=== PATIENT | female | born 1945 | race African-American/Black ===

== ENCOUNTER → 2018-08-10 | Outpatient (CLI) | payer MEDICARE, BC ==
[2015-05-09 12:45] VITALS: BP 111/72
[~2018-08-10] MED LIST: ABAT250V IV; ASPI-482 PO; CA C1TAB28 PO; CALC-112 PO; CINN500C2 PO; COCO100O2 MC; FERR325C PO; LOSA1TAB22 PO; MELO15TA23 PO; MULT-18 PO; POTA20TA4 PO; WARF-78 PO
--- NOTE | 2018-08-10 14:10 | KCIC ---
EXAM: Bilateral digital screening mammogram with tomosynthesis. HISTORY: 73 year-old presents for screening mammography. TECHNIQUE: Full-field digital craniocaudal and mediolateral oblique 2D and 3D tomosynthesis images of both breasts are obtained for evaluation. Computer aided detection with ConisusD software version 9.3 was applied. COMPARISON: 06/28/2017 and 2015 and 06/24/2015 BREAST PARENCHYMAL DENSITY: Level B - Scattered fibroglandular densities. FINDINGS: There is increased density with architectural distortion within the 12:30 position of the left breast at mid depth. This is slightly more conspicuous compared to prior studies. This is possibly due to the site of prior benign left breast biopsy. There are stable scattered areas of nodularity and there are few benign calcifications. IMPRESSION: BI-RADS Category 0: Additional imaging needed. RECOMMENDATION: Further evaluation with a left breast sonogram targeted to the 2:30 position at mid depth is recommended to assess increased density with architectural distortion, possibly due to the site of prior breast biopsy. Correlation for a cutaneous scar overlying this region may also be useful. If your mammogram demonstrates that you have dense breast tissue, which could hide abnormalities, and if you have other risk factors for breast cancer that have been identified, you might benefit from supplemental screening tests that may be suggested by your ordering physician. Dense breast tissue, in and of itself, is a relatively common condition. This information is not provided to cause undue concern, but rather to raise your awareness and to promote discussion with your physician regarding the presence of other risk factors, in addition to dense breast tissue. A report of your mammography results will be sent to you and your physician. You should contact your physician if you have any questions or concerns regarding this report. Mammography is a sensitive method for finding small breast cancers, but it does not detect them all and is not a substitute for careful clinical examination. A negative mammogram does not negate a clinically suspicious finding and should not result in delay in biopsying a clinically suspicious abnormality. PQRS compliance statement - Patient information was entered into a reminder system with a target due date for the next mammogram. "Our facility is accredited by the [employer] Mammography Program." Electronically signed by: Soraida Grijalva MD (08/10/2018 2:05 PM) [facility]
== END | disposition home or self-care (01) ==
LOC: KCIC MAMMO 12:06
PROVIDERS: ATTEND Physician Assistant Surgical
DX: Z12.31 Encounter for screening mammogram for malignant neoplasm of breast (principal)
CPT/HCPCS: 77063; 77067

== ENCOUNTER → 2018-08-23 | Outpatient (CLI) | payer MEDICARE, BC ==
[2015-05-09 12:45] VITALS: BP 111/72
--- NOTE | 2018-08-23 13:12 | KCIC ---
Left breast diagnostic ultrasound HISTORY: Asymmetric tissue density in the upper left breast seen in the August 10, 2018 mammogram Sonographic examination of the 12:00 to 3:00 left breast was performed and multiple static images obtained There is a vague heterogeneous area in the 12:00 left breast 2 cm from the nipple which does not appear suspicious and does not correspond to the mammographic finding. There is a small hypoechoic mass at 2:00 3.5 cm from the nipple that measures 6 mm x 4 mm x 6 that is shadowing, has irregular margins and is taller than wide. There is no detectable blood flow. IMPRESSION: Small suspicious mass corresponding with the mammographic abnormality. Recommend ultrasound-guided biopsy. These results were provided to the patient by the child caregiver. The patient and the clinical service will be contacted by the radiology staff for further instructions. BI-RADS Category 4: Suspicious. Electronically signed by: Tye Red III, MD (08/23/2018 1:08 PM) [facility]
== END | disposition home or self-care (01) ==
LOC: KCIC US 11:03
PROVIDERS: ATTEND Physician Assistant Surgical
DX: R92.8 Other abnormal and inconclusive findings on diagnostic imaging of breast (principal)
CPT/HCPCS: 76641

== ENCOUNTER → 2018-09-14 | Outpatient (CLI) | payer MEDICARE, BC ==
[2015-05-09 12:45] VITALS: BP 111/72
--- NOTE | 2018-09-14 14:47 | RAD ---
Ultrasound-guided left breast biopsy, 09/14/2018: History: Left breast lesion A previous ultrasound study demonstrated a vague hypoechoic area of suspicion at the 2:00 location in the left breast approximately 3.5 cm in the nipple. Under local anesthesia, aseptic conditions and sonographic guidance the [employer] biopsy instrument was passed into this area via a lateral approach. Multiple 12-gauge vacuum-assisted core samples were obtained and sent to pathology for evaluation. A biopsy marker was deposited biopsy site. The biopsy instrument was then removed and hemostasis obtained. Two-view postprocedural digital mammograms were then obtained to document position of the biopsy marker. This biopsied lesion is shown to lie anterior and lateral to the chronic spiculated left previous breast lesion which has been thought to represent scarring. The patient tolerated the procedure well and left the department in good condition. The pathology results are pending. An addendum report will be issued when the pathologic results are available for correlation.
--- NOTE | 2018-09-18 08:09 | PATHOLOGY ---
[facility] Accession Number: [id number] . 01 Material submitted: . LEFT BREAST TISSUE, 200 3.5CMFN . 01 Clinical history: . Left breast mass . 02 Diagnosis: Breast tissue, left breast mass 2:00 needle biopsies: - Stromal fibrosis, focal. See comment. (JPM:trish; 09/15/2018) QMS/09/15/2018 . 02 Comment: Sections of the left breast mass at 2:00 needle biopsy reveal segments of predominantly fatty breast tissue. There are several small foci of stromal fibrosis. There is no atypia or evidence of malignancy. It is not clear if the biopsy findings are international account representative of the lesion. Please correlate with mammographic findings. (JPM:trish; 09/15/2018) . 02 Electronically signed: . Henry Lee MD, Pathologist NPI- [id number] . 01 Gross description: . Received in formalin labeled "Alyssia Saldaña, left breast 2:00," and additionally labeled on the requisition as "3.5 cm FN," are multiple needle cores of yellow-worrell fibrofatty tissue measuring 1.7 x 2.1 x 0.3 cm in aggregate dimensions. The tissue is submitted in its entirety in cassette A1 through A3. The cold ischemic time is 2 minutes. The total formalin fixation time is 9 hours and 43 minutes. (TSD; 09/14/2018) TOB/TOB . 02 Pathologist provided ICD-10: N60.32 . 02 CPT . 211348 Specimen Comment: A courtesy copy of this report has been sent to Specimen Comment: [phone], , . Specimen Comment: Report sent to ,DR VALENCIA / DR CARL Specimen Comment: A duplicate report has been generated due to demographic updates. Performed at: 01 [facility] [address] [place] [address] [place], [place] [id number] MD Ariel Vazquez MD Phone: [phone] Performed at: 02 [facility] [address], [place] [id number] MD Henry Lee MD Phone: [phone]
== END | disposition home or self-care (01) ==
LOC: US 11:25
PROVIDERS: ATTEND Surgery
DX: N60.32 Fibrosclerosis of left breast (principal); I10 Essential (primary) hypertension; Z79.01 Long term (current) use of anticoagulants; Z88.8 Allergy status to other drugs, medicaments and biological substances
CPT/HCPCS: 19083; 77065; 88305; C1713; 19081; 76942

== ENCOUNTER → 2019-03-23 | Day surgery (SDC) | payer MEDICARE, BC ==
[~2019-03-23] MED LIST changes: +HYDROmorphone 2 MG/ML VIAL IV PRN; +IV RINGERS,LACTATED 1000ML 1,000 ML IV SCH; +LIDOCAINE 2% PF 5 ML VIAL. ONE; +MORPHINE SULFATE 2 MG/ML VIAL. IV PRN; +ONDANSETRON PF 4 MG/2 ML VIAL. IV PRN; +PROCHLORPERAZINE 10 MG/2 ML VIAL. IV PRN; +PROPOFOL 40 ML IV ONE; +fentaNYL PF VIAL 100 MCG/2 ML VIAL IV PRN
[2019-03-23 09:08] VITALS: BP 134/65
== END ==
LOC: SURG 07:16
PROVIDERS: ATTEND Internal Medicine Gastroenterology
DX: Z12.11 Encounter for screening for malignant neoplasm of colon (principal); K57.30 Diverticulosis of large intestine without perforation or abscess without bleeding; K64.0 First degree hemorrhoids; I10 Essential (primary) hypertension; D64.9 Anemia, unspecified; F15.90 Other stimulant use, unspecified, uncomplicated; Z86.010 Personal history of colon polyps; Z87.39 Personal history of other diseases of the musculoskeletal system and connective tissue; Z79.82 Long term (current) use of aspirin; Z79.899 Other long term (current) drug therapy; Z98.890 Other specified postprocedural states; Z98.0 Intestinal bypass and anastomosis status; Z90.710 Acquired absence of both cervix and uterus; Z98.51 Tubal ligation status
CPT/HCPCS: G0105; J2001; J2704; 45378

== ENCOUNTER → 2019-09-12 | Outpatient (CLI) | payer MEDICARE, BC ==
[2019-03-23 09:08] VITALS: BP 134/65
[~2019-09-12] MED LIST changes: -HYDROmorphone 2 MG/ML VIAL IV PRN; -IV RINGERS,LACTATED 1000ML 1,000 ML IV SCH; -LIDOCAINE 2% PF 5 ML VIAL. ONE; -MORPHINE SULFATE 2 MG/ML VIAL. IV PRN; -ONDANSETRON PF 4 MG/2 ML VIAL. IV PRN; -PROCHLORPERAZINE 10 MG/2 ML VIAL. IV PRN; -PROPOFOL 40 ML IV ONE; -fentaNYL PF VIAL 100 MCG/2 ML VIAL IV PRN
--- NOTE | 2019-09-12 18:01 | KCIC ---
Bilateral digital screening mammograms with 3-D tomosynthesis: Reason for examination: Routine screening. Comparison is made to previous studies dated back to 06/24/2015. Bilateral mammograms in CC and oblique projections were obtained with 2-D imaging and 3-D tomosynthesis imaging on a Siemens Inspiration unit and reviewed on the workstation. Interpretation was made with the benefit of CAD. The skin and nipples show no abnormalities. No abnormal axillary lymph nodes are seen. The breast parenchyma shows scattered fatty and fibroglandular density. (Breast density: Category B.) There continues be focal architectural distortion at the 12:30 B position of the left breast which remains stable. This likely represents a site of previous biopsy. This does not correspond with the site of biopsy clip placed on September 14, 2018. There are no new dominant masses, suspicious calcifications or architectural distortion. Benign calcifications are present. Impression: Continued presence of focal architectural distortion at the 12:30 B position of the left breast which is stable back to 06/24/2015 and likely represents previous excisional biopsy site.. Biopsy clip does not correspond with the site. BI-RAD Category 2: Benign. "Our facility is accredited by the [employer] Mammography Program." This patient's information has been entered into a reminder system for the patient to be notified with the results of her examination and a target date for the next mammogram. Electronically signed by: Lilia Squires MD (09/12/2019 5:58 PM) [facility]
== END | disposition home or self-care (01) ==
LOC: KCIC MAMMO 08:23
PROVIDERS: ATTEND Internal Medicine
DX: Z12.31 Encounter for screening mammogram for malignant neoplasm of breast (principal); N64.89 Other specified disorders of breast
CPT/HCPCS: 77063; 77067

== ENCOUNTER → 2020-02-07 | Outpatient (CLI) | payer MEDICARE, BC ==
[2019-03-23 09:08] VITALS: BP 134/65
[~2020-02-07] MED LIST changes: +ABAT125S SQ; -ABAT250V IV; +ABAT250V2 IV; -WARF-78 PO; +WARF5TAB2 PO
== END | disposition home or self-care (01) ==
LOC: LAB 12:39
PROVIDERS: ATTEND Ophthalmology
DX: Z11.59 Encounter for screening for other viral diseases (principal)
CPT/HCPCS: 36415; U0003

== ENCOUNTER 2020-02-11 06:05 | Day surgery (SDC) | payer MEDICARE, BC ==
[~2020-02-11 06:05] MED LIST changes: -ABAT125S SQ; +LIDOCAINE 2% JELLY 6ML IN APPLICATOR. OS ONE; +PROPARACAINE 0.5% OPHTH SOLUTION 15ML BOTTLE. OS ONE
[2020-02-11] MEDS ORDERED: CIPROFLOXACIN 0.3% OPHTH SOLUTION 5ML BOTTLE. OS ONE (06:15)
[2020-02-11] MEDS ORDERED: ABAT125S SQ (06:49)
[2020-02-11] MEDS: CYCLOPENTOLATE 1% OPTH SOLUTION 2ML BOTTLE. OS SCH ×3 (07:00→07:10)
[2020-02-11] MEDS ORDERED: HYDROmorphone 2 MG/ML VIAL IV PRN (07:00)
[2020-02-11] MEDS ORDERED: IV RINGERS,LACTATED 1000ML 1,000 ML IV SCH (07:00)
[2020-02-11] MEDS ORDERED: LIDOCAINE 1% PF 2 ML VIAL. ID PRN (07:00)
[2020-02-11] MEDS ORDERED: MORPHINE SULFATE 2 MG/ML VIAL. IV PRN (07:00)
[2020-02-11] MEDS ORDERED: ONDANSETRON PF 4 MG/2 ML VIAL. IV PRN (07:00)
[2020-02-11] MEDS ORDERED: fentaNYL PF VIAL 100 MCG/2 ML VIAL IV PRN ×2 (07:00)
[2020-02-11] MEDS: PHENYLEPHRINE 10% OPHTH SOLUTION 5ML BOTTLE. OS SCH ×3 (07:00→07:10)
[2020-02-11] MEDS ORDERED: PROCHLORPERAZINE 10 MG/2 ML VIAL. IV PRN (07:00)
[2020-02-11] MEDS ORDERED: BALANCED SALT IRRIG OPHTH SOLN 15 ML BOTTLE. ONE ×2 (07:09→07:10)
[2020-02-11] MEDS ORDERED: CHONDROIT-SOD-HYALURONATE KIT. ONE (07:10)
[2020-02-11] MEDS ORDERED: NEO/POLYMYX/DEXAMETH OPHTH OINTMENT 3.5GM TUBE. ONE (07:10)
[2020-02-11] MEDS ORDERED: LIDOCAINE 2% JELLY 6ML IN APPLICATOR. ONE (07:10)
[2020-02-11] MEDS ORDERED: CHONDROITIN-SOD-HYALURONATE 0.5 ML DISP.SYRIN. ONE (07:10)
[2020-02-11] MEDS ORDERED: LIDOCAINE 1%/PHENYLEPH 1.5% PF OPHTH 1 ML VIAL. ONE (07:10)
[2020-02-11] MEDS ORDERED: MIDAZOLAM HCL/PF 2 MG/2 ML VIAL. ONE (08:01)
[2020-02-11 09:04] VITALS: BP 149/67
--- NOTE | 2020-02-11 09:10 | OP ---
DATE OF SURGERY: 02/11/2020 PREOPERATIVE DIAGNOSIS: Cataract of the left eye. PROCEDURE: Phacoemulsification with posterior chamber intraocular lens implantation of the left eye. INDICATION: Painless progressive visual loss, visually significant cataract and difficulty reading. SURGEON: Eliot Mejia MD ANESTHESIA: Topical with monitored anesthesia care. DESCRIPTION OF PROCEDURE: The left eye was prepped with Betadine in the usual sterile fashion and draped. A paracentesis was performed followed by instillation of preservative-free, phenylephrine and lidocaine. Viscoelastic was injected in the anterior chamber and temporal clear corneal incision was made. A capsulorrhexis was performed followed by hydro expression and Viscoat sandwich. The phacoemulsification handpiece was used to remove the nucleus in a modified stop and chop fashion. The I/A handpiece was used to remove the cortex. Viscoelastic was injected in the capsular bag and an Raza, model [id number] with a power of 23.5 diopters was placed into the capsular bag. Balanced salt solution was used to hydrate the corneal wounds and the viscoelastic evacuated with the I/A handpiece. Once no leak was noted, Maxitrol was placed on the eye and the eye shielded and the patient was sent to the recovery room uneventfully. BONY WEST MD DR: DARNELL/taylor JOB#: [id number] / [id number]
== END 2020-02-11 09:30 | disposition home or self-care (01) ==
LOC: SURG 06:05
PROVIDERS: ATTEND Ophthalmology
DX: H25.12 Age-related nuclear cataract, left eye (principal); G47.30 Sleep apnea, unspecified; D64.9 Anemia, unspecified; I10 Essential (primary) hypertension; E66.9 Obesity, unspecified; Z68.30 Body mass index [BMI] 30.0-30.9, adult; Z87.891 Personal history of nicotine dependence; Z98.890 Other specified postprocedural states; Z86.010 Personal history of colon polyps; Z98.84 Bariatric surgery status; Z96.643 Presence of artificial hip joint, bilateral; Z90.710 Acquired absence of both cervix and uterus; Z98.51 Tubal ligation status
CPT/HCPCS: 66984; C1780; J0171; J0690; J1580; J2250; J3490

== ENCOUNTER → 2020-02-25 | Day surgery (SDC) | payer MEDICARE, BC ==
[~2020-02-25] MED LIST changes: +ABAT125S SQ; +BALANCED SALT IRRIG OPHTH SOLN 15 ML BOTTLE. ONE; +CHONDROIT-SOD-HYALURONATE KIT. ONE; +CHONDROITIN-SOD-HYALURONATE 0.5 ML DISP.SYRIN. ONE; +CIPROFLOXACIN 0.3% OPHTH SOLUTION 5ML BOTTLE. OD ONE; +IV RINGERS,LACTATED 1000ML 1,000 ML IV SCH; +LIDOCAINE 1% PF 2 ML VIAL. ONE; +LIDOCAINE 1%/PHENYLEPH 1.5% PF OPHTH 1 ML VIAL. ONE; +LIDOCAINE 2% JELLY 6ML IN APPLICATOR. OD ONE; +LIDOCAINE 2% JELLY 6ML IN APPLICATOR. ONE; -LIDOCAINE 2% JELLY 6ML IN APPLICATOR. OS ONE; +NEO/POLYMYX/DEXAMETH OPHTH OINTMENT 3.5GM TUBE. ONE; +PROPARACAINE 0.5% OPHTH SOLUTION 15ML BOTTLE. OD ONE; -PROPARACAINE 0.5% OPHTH SOLUTION 15ML BOTTLE. OS ONE
[2020-02-25] MEDS: CYCLOPENTOLATE 1% OPHTH SOLUTION 2ML BOTTLE. OD SCH ×3 (06:09→07:05)
[2020-02-25] MEDS: PHENYLEPHRINE 10% OPHTH SOLUTION 5ML BOTTLE. OD SCH ×3 (06:40→06:52)
[2020-02-25 07:10] VITALS: BP 200/63
--- NOTE | 2020-02-25 08:50 | OP ---
DATE OF SURGERY: 02/25/2020 PREOPERATIVE DIAGNOSIS: Cataract of the right eye. PROCEDURE: Phacoemulsification with posterior chamber intraocular lens implantation of the right eye. SURGEON: Bony Mccabe MD ANESTHESIA: Topical with monitored anesthesia care. DESCRIPTION OF PROCEDURE: The right eye was prepped with Betadine in the usual sterile fashion and draped. A paracentesis was performed, followed by instillation of preservative-free lidocaine and phenylephrine. A temporal clear corneal incision was made, followed by a capsulorrhexis and hydrodissection. The nucleus was removed with the phacoemulsification handpiece and the I/A handpiece used to remove the cortex. Viscoelastic was used to fill the anterior chamber and an Raza, model [id number] with a power of 23.5 diopters was placed into the capsular bag. Balanced salt solution was used to hydrate the corneal wounds and the viscoelastic evacuated with the I/A handpiece. Once no leak was noted, Maxitrol was placed on the eye and the eye shielded and the patient was sent to the recovery room uneventfully. BONY MCCABE MD DR: DARNELL/taylor JOB#: [id number] / [id number]
== END ==
LOC: SURG 06:07
PROVIDERS: ATTEND Ophthalmology
DX: H25.11 Age-related nuclear cataract, right eye (principal); E66.9 Obesity, unspecified; I10 Essential (primary) hypertension; D64.9 Anemia, unspecified; G47.30 Sleep apnea, unspecified; Z87.891 Personal history of nicotine dependence; Z68.30 Body mass index [BMI] 30.0-30.9, adult; Z86.010 Personal history of colon polyps; Z98.84 Bariatric surgery status; Z87.39 Personal history of other diseases of the musculoskeletal system and connective tissue; Z96.643 Presence of artificial hip joint, bilateral; Z98.890 Other specified postprocedural states; Z90.710 Acquired absence of both cervix and uterus
CPT/HCPCS: 66984; C1780; J0171; J0690; J1580; J3490

== ENCOUNTER 2020-06-30 07:15 | Emergency (ER) | payer MEDICARE, BC ==
[~2020-06-30] VITALS: Ht 172.7 cm; Wt 91.0 kg
[~2020-06-30 07:15] MED LIST changes: -BALANCED SALT IRRIG OPHTH SOLN 15 ML BOTTLE. ONE; -CHONDROIT-SOD-HYALURONATE KIT. ONE; -CHONDROITIN-SOD-HYALURONATE 0.5 ML DISP.SYRIN. ONE; -CIPROFLOXACIN 0.3% OPHTH SOLUTION 5ML BOTTLE. OD ONE; -IV RINGERS,LACTATED 1000ML 1,000 ML IV SCH; -LIDOCAINE 1% PF 2 ML VIAL. ONE; -LIDOCAINE 1%/PHENYLEPH 1.5% PF OPHTH 1 ML VIAL. ONE; -LIDOCAINE 2% JELLY 6ML IN APPLICATOR. OD ONE; -LIDOCAINE 2% JELLY 6ML IN APPLICATOR. ONE; -NEO/POLYMYX/DEXAMETH OPHTH OINTMENT 3.5GM TUBE. ONE; -PROPARACAINE 0.5% OPHTH SOLUTION 15ML BOTTLE. OD ONE
[2020-06-30 08:17] LABS: BILIRUBIN,URINE NEGATIVE (NEG); CLARITY,URINE CLEAR; COLOR,URINE YELLOW; NITRITE,URINE NEGATIVE (NEG); PH,URINE 7.5 (<5.0-8.0); PROTEIN,URINE NEGATIVE (NEG-TRACE)
[2020-06-30 08:25] LABS: CREATININE 0.6 mg/dL (0.6-1.0); GFR 117.9
[2020-06-30 08:26] LABS: BASO % 0 % (0-3); EOS # 0.1 x10^3/uL (0.0-0.7); EOS % 1 % (0-3); HEMATOCRIT 37.8 % (36.0-47.0); HEMOGLOBIN 11.8 g/dL (12.0-15.5); LYMPH # 2.3 x10^3/uL (1.0-4.8); LYMPH % 33 % (24-48); MEAN CORPUSCULAR HEMOGLOBIN 23 pg (25-35); MEAN CORPUSCULAR HGB CONC 31 g/dL (31-37); MEAN CORPUSCULAR VOLUME 73 fL (79-100); MONO # 0.6 x10^3/uL (0.0-1.1); MONO % 8 % (0-9); NEUT # 3.9 x10^3/uL (1.8-7.7); NEUT % 57 % (31-73); PLATELET COUNT 264 x10^3/uL (140-400); RED BLOOD COUNT 5.21 x10^6/uL (3.50-5.40); WHITE BLOOD COUNT 6.8 x10^3/uL (4.0-11.0)
--- NOTE | 2020-06-30 08:29 | PHYS DOC ---
Past Medical History Past Medical History: Arthritis, Hypertension Additional Past Medical Histor: RA, osteoarthritis, osteoporosis Past Surgical History: Hip Replacement Additional Past Surgical Histo: bilateral hip Past Surgical History biliopancreatic diversion Smoking Status: Former Smoker Alcohol Use: None Drug Use: None General Adult EDM: Chief Complaint: GI PROBLEM HPI: HPI: Patient is a 75 year old female who presents with intermittent abdominal pain that started several months ago. This is the third time it has happened. The pain began last night and it feels raw in her midsection and is constant and does not radiate. The pt vomited last night and that made the pain better. Pt also took hydrocodone and that made the pain better. Ibuprofen did not help. Pt saw her primary care for this issue last Tuesday but it was not addressed at the time. Pt also sleeps with a CPAP and states that it makes the abdominal pain worse and has not been using it. Pt also has loose stools associated with the pain. Pt denies any history of GERD. Denies fever/chills. Reports she has been eating fried fish. Review of Systems: Review of Systems: Constitutional: Denies fever or chills Eyes: Denies redness or eye pain HENT: Denies nasal congestion or sore throat Respiratory: Denies cough or shortness of breath Cardiovascular: Denies chest pain or palpitations GI: Reports abdominal pain, nausea, and vomiting : Denies dysuria or hematuria Musculoskeletal: Denies back pain or joint pain Integument: Denies rash or skin lesions Neurologic: Denies headache, focal weakness or sensory changes Complete systems were reviewed and found to be within normal limits, except as documented in this note. Family History: Family History: Mom: SD/DM Dad: strokes Allergies: Allergies: Allergies Coded Allergies Type Severity Reaction Last Updated Verified lisinopril Adverse Reaction Intermediate flu like symptoms 02/11/20 Yes Physical Exam: PE: Constitutional: Well developed, well nourished, no acute distress, non-toxic appearance HENT: Normocephalic, atraumatic Eyes: conjunctiva normal, no discharge Neck: Normal range of motion, no tenderness, supple Lungs & Thorax: No respiratory distress, equal chest rise and fall Abdomen: Soft, upper abdominal tenderness to palpation, no masses, no organomegaly, vertical scar on mid abdomen Skin: Warm, dry, no erythema, no rash Back: No tenderness, no CVA tenderness Extremities: No tenderness, ROM intact, no edema Neurologic: Alert and oriented X 3, normal motor function, normal sensory function, no focal deficits noted Psychologic: Affect normal, judgment normal EKG: EKG: [] Radiology/Procedures: Radiology/Procedures: PROCEDURE: CT ABD PELV W/ IV CONTRST ONLY EXAM: CT Abdomen and Pelvis with IV contrast INDICATION: Reason: abdominal pain / Spl. Instructions: IV OMNI 300 75 MLS / History: TECHNIQUE: Multi-detector row CT images were acquired from the lung bases through the abdomen and pelvis with the use of IV contrast. Sagittal and coronal images were acquired from the transaxial data. All CT scans performed at this facility utilize dose optimization techniques as appropriate to the exam, including the following: Automated exposure control and adjustment of the mA and/or KV according to patient size (this includes techniques or standardized protocols for targeted exams where dose is indication/reason for exam). IV CONTRAST: Administered ORAL CONTRAST: Not administered COMPARISON: None FINDINGS: LOWER CHEST: Unremarkable LIVER: Unremarkable BILIARY SYSTEM: Gallbladder is mildly distended and shows wall thickening with mild pericholecystic stranding associated with a 2.7 cm stone at the gallbladder neck. There is mild anterior and extrahepatic biliary dilation with the common duct at the bayron hepatis measuring approximately 7 mm PANCREAS: Unremarkable SPLEEN: Unremarkable ADRENALS: Unremarkable KIDNEYS & URETERS: Unremarkable BLADDER: Unremarkable REPRODUCTIVE ORGANS: Unremarkable GASTROINTESTINAL: There are surgical changes suggesting a previous distal gastrectomy. Additional surgical changes suggesting partial small bowel resection. No evidence of bowel obstruction, perforation or acute inflammation. Moderate stool throughout the large bowel. Appendix is surgically absent. MESENTERY/PERITONEUM/RETROPERITONEUM: Unremarkable VASCULAR: Extensive arterial calcifications. LYMPH NODES: No adenopathy OSSEOUS & SOFT TISSUES: Bilateral hip arthroplasties are present. IMPRESSION: Cholelithiasis with additional CT findings suspicious for acute cholecystitis. Consider correlation with gallbladder ultrasound. Electronically signed by: Antoine Grande MD (06/30/2020 9:05 AM) [id number] PROCEDURE: ABDOMEN LTD ABDOMEN LTD: 06/30/2020 9:12 AM Indication: 75 years old female with right upper abdominal pain. Comparison: CT abdomen/pelvis 06/30/2020 TECHNIQUE: Sonographic evaluation of the right upper quadrant was performed utilizing grayscale and color Doppler imaging. FINDINGS: Liver: There is diffuse increased echogenicity of the hepatic parenchyma compatible with diffuse hepatocellular disease, most commonly due to steatosis. This decreases the sensitivity of ultrasound for the detection of focal hepatic lesions. There is mild periportal edema. There is hepatopedal flow within the portal venous system. Right hepatic lobe measures 15.5 cm. Biliary system: CBD measures 4 mm. There is no intrahepatic or extrahepatic biliary dilatation. Gallbladder: Cholelithiasis without significant gallbladder wall thickening or pericholecystic fluid . Sonographic Calloway sign: Not reported. Pancreas: Suboptimal visualization due to bowel gas. Right kidney:10.3 x 5.7 x 4.6 cm No hydronephrosis. Normal echotexture without focal mass or renal calculus. Free fluid:None. IMPRESSION: 1. Cholelithiasis with a gallstone measuring up to 2.5 cm. No sonographic evidence for acute cholecystitis. If there is persistent clinical concern, HIDA could be of benefit. 2. Mild periportal edema could reflect hepatic inflammation versus fluid overload. 3. No intrahepatic or extrahepatic biliary ductal dilatation. 4. Suspect mild hepatic steatosis. Electronically signed by: Arely Tijerina MD (06/30/2020 10:36 AM) [id number] Course & Med Decision Making: Course & Med Decision Making Pertinent Labs and Imaging studies reviewed. (See chart for details) Patient presented with abdominal pain that began yesterday. Reports has had similar events over the last few months. Labs were obtained and posted to chart. WBC WNL. LFTs and lipase also WNL. Pain and nausea addressed. IVF provided. CT scan was obtained and demonstrated. Cholelithiasis noted on CT. US without findings of acute cholecystitis. Patient stable for discharge with outpatient follow-up with PCP/General surgery. General surgery referral provided. Rx for anti-emetic provided. Patient reports she has pain medications at home. Discussed findings and plan with patient, who acknowledges understanding and agreement. Dragon Disclaimer: Dragcasi Disclaimer: This electronic medical record was generated, in whole or in part, using a voice recognition dictation system. Departure Departure Impression: Primary Impression: Cholelithiases Qualified Codes: K80.50 - Calculus of bile duct without cholangitis or cholecystitis without obstruction Disposition: 01 DC HOME SELF CARE/HOMELESS Condition: STABLE Referrals: YENI SYLVESTER MD (PCP) JP VALENCIA MD Patient Instructions: Cholelithiasis, [id number] Scripts Ondansetron (ONDANSETRON ODT) 4 Mg Tab.rapdis 1 TAB PO PRN Q6-8HRS PRN for NAUSEA, #16 TAB Prov: SAGE REZA DO 06/30/20 SAGE REZA DO Jun 30, 2020 08:29
[2020-06-30 08:30] LABS: ALBUMIN 3.5 g/dL (3.4-5.0); ALBUMIN/GLOBULIN RATIO 1.1 (1.0-1.7); MAGNESIUM 2.1 mg/dL (1.8-2.4); TOTAL BILIRUBIN 0.8 mg/dL (0.2-1.0); TOTAL PROTEIN 6.8 g/dL (6.4-8.2)
[2020-06-30 08:34] VITALS: BP 160/74
[2020-06-30 08:45] LABS: BACTERIA,URINE 0 /HPF (0-FEW); RBC,URINE OCC /HPF (0-2); WBC,URINE 0 /HPF (0-4)
[2020-06-30] MEDS ORDERED: CONTRAST GIVEN. MC PRN (08:45)
[2020-06-30] MEDS ORDERED: IOHEXOL 300 MG/ML 100ML VIAL. IV ONE (09:00)
--- NOTE | 2020-06-30 09:08 | RAD ---
EXAM: CT Abdomen and Pelvis with IV contrast INDICATION: Reason: abdominal pain / Spl. Instructions: IV OMNI 300 75 MLS / History: TECHNIQUE: Multi-detector row CT images were acquired from the lung bases through the abdomen and pelvis with the use of IV contrast. Sagittal and coronal images were acquired from the transaxial data. All CT scans performed at this facility utilize dose optimization techniques as appropriate to the exam, including the following: Automated exposure control and adjustment of the mA and/or KV according to patient size (this includes techniques or standardized protocols for targeted exams where dose is indication/reason for exam). IV CONTRAST: Administered ORAL CONTRAST: Not administered COMPARISON: None FINDINGS: LOWER CHEST: Unremarkable LIVER: Unremarkable BILIARY SYSTEM: Gallbladder is mildly distended and shows wall thickening with mild pericholecystic stranding associated with a 2.7 cm stone at the gallbladder neck. There is mild anterior and extrahepatic biliary dilation with the common duct at the bayron hepatis measuring approximately 7 mm PANCREAS: Unremarkable SPLEEN: Unremarkable ADRENALS: Unremarkable KIDNEYS & URETERS: Unremarkable BLADDER: Unremarkable REPRODUCTIVE ORGANS: Unremarkable GASTROINTESTINAL: There are surgical changes suggesting a previous distal gastrectomy. Additional surgical changes suggesting partial small bowel resection. No evidence of bowel obstruction, perforation or acute inflammation. Moderate stool throughout the large bowel. Appendix is surgically absent. MESENTERY/PERITONEUM/RETROPERITONEUM: Unremarkable VASCULAR: Extensive arterial calcifications. LYMPH NODES: No adenopathy OSSEOUS & SOFT TISSUES: Bilateral hip arthroplasties are present. IMPRESSION: Cholelithiasis with additional CT findings suspicious for acute cholecystitis. Consider correlation with gallbladder ultrasound. Electronically signed by: Antoine Grande MD (06/30/2020 9:05 AM) [id number]
[2020-06-30] MEDS ORDERED: fentaNYL PF VIAL 100 MCG/2 ML VIAL IV ONE (09:45)
--- NOTE | 2020-06-30 10:40 | RAD ---
ABDOMEN LTD: 06/30/2020 9:12 AM Indication: 75 years old female with right upper abdominal pain. Comparison: CT abdomen/pelvis 06/30/2020 TECHNIQUE: Sonographic evaluation of the right upper quadrant was performed utilizing grayscale and color Doppler imaging. FINDINGS: Liver: There is diffuse increased echogenicity of the hepatic parenchyma compatible with diffuse hepatocellular disease, most commonly due to steatosis. This decreases the sensitivity of ultrasound for the detection of focal hepatic lesions. There is mild periportal edema. There is hepatopedal flow within the portal venous system. Right hepatic lobe measures 15.5 cm. Biliary system: CBD measures 4 mm. There is no intrahepatic or extrahepatic biliary dilatation. Gallbladder: Cholelithiasis without significant gallbladder wall thickening or pericholecystic fluid . Sonographic Calloway sign: Not reported. Pancreas: Suboptimal visualization due to bowel gas. Right kidney:10.3 x 5.7 x 4.6 cm No hydronephrosis. Normal echotexture without focal mass or renal calculus. Free fluid:None. IMPRESSION: 1. Cholelithiasis with a gallstone measuring up to 2.5 cm. No sonographic evidence for acute cholecystitis. If there is persistent clinical concern, HIDA could be of benefit. 2. Mild periportal edema could reflect hepatic inflammation versus fluid overload. 3. No intrahepatic or extrahepatic biliary ductal dilatation. 4. Suspect mild hepatic steatosis. Electronically signed by: Arely Tijerina MD (06/30/2020 10:36 AM) [id number]
[2020-06-30 11:08] LABS: PLT ESTIMATE ADEQUATE (ADEQUATE)
[2020-06-30 11:09] LABS: HYPOCHROMIA MOD; MICROCYTOSIS PRESENT
[2020-06-30] MEDS ORDERED: ONDA4TAB12 PO (11:38)
== END 2020-06-30 11:46 | disposition home or self-care (01) ==
LOC: ER 07:15
DX: K80.50 Calculus of bile duct without cholangitis or cholecystitis without obstruction (principal); R10.9 Unspecified abdominal pain; R11.2 Nausea with vomiting, unspecified; M19.90 Unspecified osteoarthritis, unspecified site; I10 Essential (primary) hypertension; Z98.890 Other specified postprocedural states; Z87.891 Personal history of nicotine dependence; Z88.8 Allergy status to other drugs, medicaments and biological substances
CPT/HCPCS: 36415; 74177; 76705; 80053; 81001; 83605; 83690; 83735; 85025; 96374; 99285; J3010; Q9967

== ENCOUNTER → 2020-07-21 | Outpatient (CLI) | payer MEDICARE, BC ==
[2020-06-30 08:34] VITALS: BP 160/74
[~2020-07-21] MED LIST changes: +ALEN70TA3 PO; +HYDR-3070 PO; +HYDR12.575 PO; +ONDA4TAB12 PO; +OXYC1TAB15 PO; +POTA10TA6 PO
--- NOTE | 2020-07-21 13:13 | EKG ---
[facility] [address] [place] [address] Test Date: 2020-07-21 Test Time: 13:09:14 Pat Name: TK RAMIREZ Department: Room: Gender: F Care Information Associate: : 1945 Requested By: JP VALENCIA Order Number: [id number] Reading MD: Yunior Holliday Measurements Intervals [place] Rate: 57 P: 59 NC: 150 QRS: 62 QRSD: 74 T: 66 QT: 410 QTc: 402 Interpretive Statements SINUS RHYTHM NON SPECIFIC ST CHANGES Electronically Signed On 07-22-2020 9:56:36 [employer] by Yunior Holliday
[2020-07-21 14:07] LABS: BASO % 0 % (0-3); EOS # 0.1 x10^3/uL (0.0-0.7); EOS % 2 % (0-3); HEMATOCRIT 37.5 % (36.0-47.0); HEMOGLOBIN 11.8 g/dL (12.0-15.5); LYMPH # 2.7 x10^3/uL (1.0-4.8); LYMPH % 46 % (24-48); MEAN CORPUSCULAR HEMOGLOBIN 23 pg (25-35); MEAN CORPUSCULAR HGB CONC 31 g/dL (31-37); MEAN CORPUSCULAR VOLUME 73 fL (79-100); MONO # 0.5 x10^3/uL (0.0-1.1); MONO % 9 % (0-9); NEUT # 2.5 x10^3/uL (1.8-7.7); NEUT % 43 % (31-73); PLATELET COUNT 208 x10^3/uL (140-400); RED BLOOD COUNT 5.13 x10^6/uL (3.50-5.40); RED CELL DISTRIBUTION WIDTH 14.5 % (11.5-14.5); WHITE BLOOD COUNT 5.9 x10^3/uL (4.0-11.0)
[2020-07-21 19:42] LABS: HYPOCHROMIA MOD; PLT ESTIMATE ADEQUATE (ADEQUATE); POLYCHROMASIA PRESENT
[2020-07-21 19:43] LABS: ANISOCYTOSIS SLIGHT; MICROCYTOSIS SLIGHT; OVALOCYTES FEW; POIKILOCYTOSIS SLIGHT; SCHISTOCYTES OCC; TEAR DROP CELLS OCC
== END ==
LOC: SURGPAT 12:14
PROVIDERS: ATTEND Surgery
DX: Z01.812 Encounter for preprocedural laboratory examination (principal); K81.1 Chronic cholecystitis; Z20.828 Contact with and (suspected) exposure to other viral communicable diseases
CPT/HCPCS: 85025; 93005; U0003

== ENCOUNTER 2020-07-24 08:06 | Day surgery (SDC) | payer MEDICARE, BC ==
[~2020-07-24] VITALS: Ht 172.7 cm; Wt 91.5 kg
[~2020-07-24 08:06] MED LIST changes: +ACETAMINOPHEN 500 MG TABLET PO PRN; +BUPIVACAINE-EPI 0.25%-1:200000 MPF 30 ML VIAL. INJ ONE; +IV RINGERS,LACTATED 1000ML 1,000 ML IV SCH; +LIDOCAINE 1% PF 2 ML VIAL. ID PRN; +ONDANSETRON PF 4 MG/2 ML VIAL. IVP PRN; -OXYC1TAB15 PO; +PROCHLORPERAZINE 10 MG/2 ML VIAL. IVP PRN; +fentaNYL PF VIAL 100 MCG/2 ML VIAL IVP PRN
[2020-07-24] MEDS ORDERED: LIDOCAINE 2% PF 5 ML VIAL. ONE (08:43)
[2020-07-24] MEDS ORDERED: ONDANSETRON PF 4 MG/2 ML VIAL. ONE (08:43)
[2020-07-24] MEDS ORDERED: PROPOFOL 10 MG/ML (20ML) VIAL. IV ONE (08:43)
[2020-07-24] MEDS ORDERED: DEXAMETHASONE SOD PHOS 4 MG/ML VIAL ONE (08:43)
[2020-07-24] MEDS ORDERED: fentaNYL PF VIAL 100 MCG/2 ML VIAL ONE ×2 (08:44→10:30)
[2020-07-24] MEDS ORDERED: ROCURONIUM 50 MG/5 ML VIAL. ONE (08:44)
[2020-07-24] MEDS ORDERED: IOHEXOL 300 MG/ML 50 ML VIAL. ONE (08:59)
[2020-07-24] MEDS ORDERED: SURGICEL HEMOSTAT 4X8 EACH. ONE (09:00)
[2020-07-24 09:10] LABS: CALCIUM 9.4 mg/dL (8.5-10.1); CREATININE 0.7 mg/dL (0.6-1.0); GFR 98.7; POTASSIUM 3.7 mmol/L (3.5-5.1)
[2020-07-24 09:16] LABS: ALBUMIN 3.4 g/dL (3.4-5.0); TOTAL BILIRUBIN 0.8 mg/dL (0.2-1.0); TOTAL PROTEIN 6.7 g/dL (6.4-8.2)
[2020-07-24] MEDS ORDERED: GLYCOPYRROLATE 1 MG/5 ML VIAL. ONE (09:33)
[2020-07-24] MEDS ORDERED: NEOSTIGMINE METHYLSULFATE 5 MG/5 ML SYRINGE. ONE (09:33)
--- NOTE | 2020-07-24 10:03 | PDOC4 ---
Operative Note Operative Note Date: July 242019 at 1000 Preoperative diagnosis: Chronic cholecystitis cholelithiasis Postoperative diagnosis: Same Procedure: Laparoscopic cholecystectomy Surgeon: John Specimen: Gallbladder Dictation: Patient is a 75-year-old female with right upper quadrant abdominal pain ultrasound showing gallstones and mildly thickened gallbladder wall. Procedure of laparoscopic cholecystectomy was explained to the patient detail risk benefits were also discussed including bleeding infection injury to intra- abdominal contents possible necessitating further open operations alternatives to this procedure also discussed with the patient who seemed to understand and gave both verbal and written consent to have the procedure performed. Patient was taken to the operating room placed in the supine position general anesthesia was initiated once patient was sleeping intubated her abdomen was prepped and draped usual sterile fashion using ChloraPrep. An area in the left upper quadrant was injected with quarter percent Marcaine with epinephrine incision was made 11 blade scalpel and a 5 mm Visiport was placed under direct visualization into the abdomen creating pneumoperitoneum once this complete 5 mm camera was placed within the abdomen and inspected was noted there is quite a few adhesions but there was an area open on the right abdomen to allow for port placement for cholecystectomy. A 5 mm port was placed in the right midabdomen under direct visualization a 11 mm port was placed in the right lower abdomen under direct visualization a another 5 mm port was placed in the lateral right abdomen under direct visualization and one in the epigastrium. The dome of the gallbladder is grasped retracted cephalad there were quite a few adhesions of omentum to the gallbladder these were taken down with blunt dissection the infundibulum of the gallbladder is grasped retracted laterally exposing the triangle adherent tissues the triangle were taken down exposing the cystic duct and cystic artery both were doubly clipped and transected the gallbladder was taken off the liver with hook electrocautery placed in Endo Catch bag removed from the right lower abdominal 11 mm port site. Pneumoperitoneum was reduced all ports removed the fascial defect at the right lower abdomen was closed with a [id number] 0 Vicryl suture skin was reapproximated all port sites for subcuticular Monocryl Mastisol Steri-Strips and island dressings were applied. Patient was awakened and extubated operating room taken to recovery in stable condition all sponge instrument needle counts listed as correct estimated blood loss 10 mL JP VALENCIA MD Jul 24, 2020 10:03
--- NOTE | 2020-07-24 10:05 | DISCH ---
DISCHARGE INSTRUCTIONS Condition on Discharge Condition on Discharge: Stable Activity After Discharge Activity Instructions for Disc: Avoid exertion Other activity instructions: No lifting more than 20 pounds for 2 weeks Diet after Discharge Diet after Discharge: Low Fat Wound Incision Care Other wound/incision instructi: May shower in 24 hours Contacting the after DC Call your doctor for: If your condition worsens Follow-Up Follow up with: Dr. Valencia in 2 weeks JP VALENCIA MD Jul 24, 2020 10:05
[2020-07-24] MEDS: fentaNYL PF VIAL 100 MCG/2 ML VIAL IVP PRN ×2 (10:33→10:41)
[2020-07-24] MEDS ORDERED: MORPHINE SULFATE 2 MG/ML VIAL. ONE (10:44)
[2020-07-24] MEDS ORDERED: OXYC1TAB15 PO (10:45)
[2020-07-24] MEDS ORDERED: HYDROmorphone 2 MG/ML VIAL ONE (10:52)
[2020-07-24] MEDS: HYDROmorphone 2 MG/ML VIAL IVP PRN ×4 (10:54→11:37)
[2020-07-24] MEDS: MORPHINE SULFATE 2 MG/ML VIAL. IVP PRN ×2 (10:54→11:07)
[2020-07-24] MEDS ORDERED: oxyCODONE/APAP 5/325 1 TAB TABLET PO ONE ×2 (11:00)
[2020-07-24 12:00] VITALS: BP 155/60
== END 2020-07-24 12:09 | disposition home or self-care (01) ==
LOC: SURG 08:06
PROVIDERS: ATTEND Surgery
DX: K80.10 Calculus of gallbladder with chronic cholecystitis without obstruction (principal); I10 Essential (primary) hypertension; J44.9 Chronic obstructive pulmonary disease, unspecified; M19.90 Unspecified osteoarthritis, unspecified site; E66.9 Obesity, unspecified; Z90.49 Acquired absence of other specified parts of digestive tract; Z91.040 Latex allergy status; Z98.51 Tubal ligation status; Z98.890 Other specified postprocedural states; Z79.82 Long term (current) use of aspirin; Z79.899 Other long term (current) drug therapy; Z88.8 Allergy status to other drugs, medicaments and biological substances; Z87.891 Personal history of nicotine dependence
CPT/HCPCS: 36415; 47562; 80053; J0690; J1100; J1170; J2270; J2405; J2704; J2710; J3010; J3490; J7120; Q9967

== ENCOUNTER → 2020-09-15 | Outpatient (CLI) | payer MEDICARE, BC ==
[~2020-09-15] MED LIST changes: -ACETAMINOPHEN 500 MG TABLET PO PRN; -BUPIVACAINE-EPI 0.25%-1:200000 MPF 30 ML VIAL. INJ ONE; -IV RINGERS,LACTATED 1000ML 1,000 ML IV SCH; -LIDOCAINE 1% PF 2 ML VIAL. ID PRN; -ONDANSETRON PF 4 MG/2 ML VIAL. IVP PRN; +OXYC1TAB15 PO; -PROCHLORPERAZINE 10 MG/2 ML VIAL. IVP PRN; -fentaNYL PF VIAL 100 MCG/2 ML VIAL IVP PRN
--- NOTE | 2020-09-15 10:55 | KCIC ---
EXAM: Bilateral digital screening mammogram with tomosynthesis. HISTORY: 75-year-old female presents for screening mammography. TECHNIQUE: Full-field digital craniocaudal and mediolateral oblique 2D and 3D tomosynthesis images of both breasts are obtained for evaluation. Computer aided detection was applied. COMPARISON: 09/12/2019, 08/10/2018, 06/28/2017, 06/23/2016, 2013. BREAST PARENCHYMAL DENSITY: Level B - Scattered fibroglandular densities. FINDINGS: There has been no change in architectural distortion within the 12:30 position of the left breast at posterior depth compared to studies dating to 07/05/2014, allowing for differences in imagi ng technique. The long-term stability favors scarring due to a reported prior excisional biopsy. Ther e is a biopsy clip within the left breast which are separate from the region of architectural distort ion. There are multiple stable areas of nodularity and asymmetry within the right breast. There are m ultiple benign calcifications. IMPRESSION: 1. Stable architectural distortion within the 12:30 position of the left breast. The greater than 5 y ear course of stability favors scarring due to reported excisional biopsy. 2. No new mammographic finding. 3. BI-RADS Category 2: Benign finding(s). RECOMMENDATION: Annual mammography is recommended. If your mammogram demonstrates that you have dense breast tissue, which could hide abnormalities, and if you have other risk factors for breast cancer that have been identified, you might benefit from s upplemental screening tests that may be suggested by your ordering physician. Dense breast tissue, i n and of itself, is a relatively common condition. This information is not provided to cause undue c oncern, but rather to raise your awareness and to promote discussion with your physician regarding th e presence of other risk factors, in addition to dense breast tissue. A report of your mammography re sults will be sent to you and your physician. You should contact your physician if you have any ques tions or concerns regarding this report. Mammography is a sensitive method for finding small breast cancers, but it does not detect them all a nd is not a substitute for careful clinical examination. A negative mammogram does not negate a clin ically suspicious finding and should not result in delay in biopsying a clinically suspicious abnorma lity. PQRS compliance statement - Patient information was entered into a reminder system with a target due date for the next mammogram. "Our facility is accredited by the [employer] Mammography [employer]." Electronically signed by: Soraida Grijalva MD (09/15/2020 10:52 AM) [email or web address]
== END ==
LOC: KCIC MAMMO 09:44
PROVIDERS: ATTEND Family Medicine
DX: Z12.31 Encounter for screening mammogram for malignant neoplasm of breast (principal)
CPT/HCPCS: 77063; 77067

== ENCOUNTER → 2020-10-20 | Outpatient (CLI) | payer MEDICARE, BC ==
--- NOTE | 2020-10-20 18:13 | KCIC ---
PROCEDURE: XR KNEE 3 VIEWS_RT STUDY DATE: 10/20/2020 CLINICAL INDICATION / HISTORY: Reason: RIGHT MEDIAL KNEE PAIN, HX OF MENISCUS TEAR/SURGERY IN 2010. Instructions: / History: . TECHNIQUE: AP, lateral, and oblique views of the right knee. COMPARISON: None FINDINGS: Articular surface irregularity is present in all 3 compartments with osteophytic spurring e vident in the superior and inferior poles of the patella. No acute fracture or aggressive bony lesion s are seen. The bones are mildly demineralized. The soft tissues show trace joint effusion. No signif icant soft tissue swelling. 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 No fracture or malalignment note d. Electronically signed by: Antoine Grande MD (10/20/2020 6:11 PM) [id number]
== END ==
LOC: KCIC 14:07
PROVIDERS: ATTEND Family Medicine
DX: M17.11 Unilateral primary osteoarthritis, right knee (principal)
CPT/HCPCS: 73562

== ENCOUNTER → 2021-09-08 | Outpatient (CLI) | payer MEDICARE, BC ==
[~2021-09-08] MED LIST changes: +POTA-112 PO; +POTA-121 PO; -POTA10TA6 PO; -POTA20TA4 PO
--- NOTE | 2021-09-08 11:47 | KCIC ---
Bilateral digital screening mammograms with 3-D tomosynthesis: Reason for examination: Routine screening. Comparison is made to previous studies dated back to 06/28/2017. Bilateral mammograms in CC and oblique projections were obtained with 2-D imaging and 3-D tomosynthes is imaging on a Siemens Inspiration unit and reviewed on the workstation. Interpretation was made wit h the benefit of CAD. The skin and nipples show no abnormalities. No abnormal axillary lymph nodes are seen. The breast par enchyma shows scattered fatty and fibroglandular density. (Breast density: Category B.) There continu es to be Architectural distortion at the 1:00 B position of the left breast which has been stable since 2013 a nd probably represents site of previous excisional biopsy. There continues to be a small nodular dens ity anterior medially in the right breast seen best on CC view which is stable. There are no new binta nant masses, suspicious calcifications or architectural distortion. Benign. Scattered clustered calci fications are present but appears to be stable. Impression: No evidence of malignancy. Recommend routine screening. BI-RAD Category 2: Benign. "Our facility is accredited by the [employer] Mammography [employer]." This patient's information has been entered into a reminder system for the patient to be notified wit h the results of her examination and a target date for the next mammogram. Electronically signed by: Lilia Squires MD (09/08/2021 11:45 AM) [id number]
== END ==
LOC: KCIC MAMMO 09:02
PROVIDERS: ATTEND Internal Medicine
DX: Z12.31 Encounter for screening mammogram for malignant neoplasm of breast (principal)
CPT/HCPCS: 77063; 77067